=== PATIENT | female | born 1940 | race African-American/Black ===

== ENCOUNTER 2024-08-24 21:34 | Emergency (ER) | payer MEDICARE, MEDICAID ==
[~2024-08-24] VITALS: Ht 162.6 cm; Wt 80.0 kg
[~2024-08-24 21:34] MED LIST: ATEN-42 PO; ATOR40TA70 PO; BENZ100C86 PO; CLAR10 PO; CLOP75TA33 PO; PANT40TA51 PO; PROM6.2527 MT
[2024-08-24 21:44] VITALS: O2SAT 100
[2024-08-24] MEDS: LEVETIRACETAM 500MG PREMIX 100 ML IV ONE (23:52)
[2024-08-25 00:49] LABS: HEMATOCRIT. 39.8 % (36.0-48.0); HEMOGLOBIN. 13.3 g/dL (12.0-16.0); MEAN CORPUSCULAR HEMOGLOBIN 29.2 pg (28.0-32.0); MEAN CORPUSCULAR HGB CONC 33.5 g/dL (31.0-37.0); MEAN CORPUSCULAR VOLUME 87.4 fL (81.0-99.0); MEAN PLATELET VOLUME 8.5 fl (7.4-10.4); PLATELET 223 x1000/uL (130-400); RED BLOOD CELL COUNT 4.55 mill/uL (4.2-5.4); RED CELL DISTRIBUTION WIDTH 14.3 % (11.6-14.6); WHITE BLOOD COUNT 6.8 x1000/uL (4.5-11.0)
[2024-08-25 00:56] LABS: CHLORIDE 104 mEq/L (98-107); DIFFERENTIAL COMMENT 1; POTASSIUM 3.7 mEq/L (3.5-5.1); SODIUM 142 mEq/L (136-145)
[2024-08-25 00:57] LABS: CALCIUM 9.7 mg/dL (8.7-10.4); CARBON DIOXIDE 25 mEq/L (21-32)
[2024-08-25 01:02] LABS: CREATININE 0.8 mg/dL (0.6-1.0); GLUCOSE 104 mg/dL (70-105); UREA NITROGEN BLOOD 17 mg/dL (9-23)
[2024-08-25] MEDS: ASPIRIN 325MG TABLET PO ONE (05:46)
[2024-08-25 07:40] VITALS: BP 102/68; PULSE 76; RESP 18; TEMP 36.5; O2SAT 100
[2024-08-25 09:34] LABS: ANISOCYTOSIS 1+; PLATELET ESTIMATE NORMAL
== END 2024-08-25 07:41 | disposition home or self-care (01) ==
LOC: ER 21:34
DX: R56.9 Unspecified convulsions (principal); I10 Essential (primary) hypertension; I67.82 Cerebral ischemia; Z79.02 Long term (current) use of antithrombotics/antiplatelets; Z79.899 Other long term (current) drug therapy; Z86.73 Personal history of transient ischemic attack (TIA), and cerebral infarction without residual deficits; Z88.1 Allergy status to other antibiotic agents; Z88.5 Allergy status to narcotic agent
CPT/HCPCS: 99285; 96365; 70450; 36415; 80048; 83605; 85025; J1953